=== PATIENT | female | born 1990 | race American Indian/Alaskan Native ===

== ENCOUNTER 2017-02-10 05:32 | Emergency (ER) | payer BC ==
[2017-02-10] MEDS ORDERED: PROVENTIL IH ONE (05:38)
[2017-02-10 06:13] LABS: Basophils % (Auto) 0.5 % (0.0-1.8); Hematocrit 39.1 % (30.3-42.9); Hemoglobin 12.8 gm/dl (10.1-14.3); Mean Corpuscular HGB Conc 33 % (30-34); Mean Corpuscular Hemoglobin 27 pg (28-32); Mean Corpuscular Volume 83 fl (79-97); Platelet Count 292 K/mm3 (140-440); Red Blood Count 4.73 M/mm3 (3.65-5.03); Red Cell Distribution Width 14.7 % (13.2-15.2); White Blood Count 7.5 K/mm3 (4.5-11.0)
[2017-02-10 06:30] LABS: Anion Gap 18 mmol/L; BUN/Creatinine Ratio 8.88; Blood Urea Nitrogen 8 mg/dL (7-17); Calcium 9.6 mg/dL (8.4-10.2); Carbon Dioxide 26 mmol/L (22-30); Chloride 99.9 mmol/L (98-107); Glucose 96 mg/dL (65-100); Potassium 3.9 mmol/L (3.6-5.0); Sodium 140 mmol/L (137-145)
[2017-02-10] MEDS ORDERED: DUONEB 0.5 MG-3 MG/3 ML SOLN IH ONE (07:27)
[2017-02-10] MEDS ORDERED: DELTASONE PO ONE (07:27)
--- NOTE | 2017-02-10 07:29 | Emergency Department Report ---
ED Asthma HPI - General Chief Complaint: Adult Asthma Stated Complaint: WHEEZING/CHEST PAIN Time Seen by Provider: 02/10/17 07:18 Source: patient Mode of arrival: Ambulatory Limitations: No Limitations - History of Present Illness Initial Comments: 26-year-old female past medical history asthma presents with complaint of shortness of breath since 8 PM last night. Patient states that she was at home playing with her children when she became short of breath. States she used her albuterol inhaler but she ran out of pumps last night. On exam patient is speaking in full sentences awake alert and oriented 3 does not appear to be in acute distress. No audible wheezing or stridor. Patient states that she feels chest tightness which is consistent with her asthma, denies any fever or chills no productive cough no nausea no vomiting no abdominal pain reported. Patient denies any history of PE or DVT not in any form of control no recent travel no recent trauma no leg swelling reported no recent surgeries. Patient states she has not been hospitalized for asthma in some time but has had recent ED visits for asthma. No history of intubations. Patient has already received 1 nebulizer treatment in triage. MD Complaint: "asthma attack" Onset/Timin -: hour(s) Asthma History: childhood onset Severity: moderate Associated Symptoms: none Treatments Prior to Arrival: inhaled bronchodilator - Related Data Current Asthma Therapy: inhaled bronchodilator Previous Rx's Medication Instructions Recorded Last Taken Type Albuterol Sulfate [Ventolin HFA] 2 puff IH Q4H PRN #1 hfa.aer.ad 12/07/15 Rx ALBUTEROL Inhaler [ProAir HFA 2 puff IH QID PRN #1 inhalation 09/22/16 Unknown Rx Inhaler] Albuterol Sulfate [Albuterol 0.63% 0.63 mg IH TID PRN #100 neb 09/22/16 Unknown Rx NEBS] Prednisone [predniSONE 5 mg (6-Day 5 mg PO .TAPER #1 tab.ds.pk 09/22/16 Unknown Rx Pack, 21 Tabs)] ALBUTEROL Inhaler [ProAir HFA 1 puff IH Q4H PRN #1 inha 02/10/17 Unknown Rx Inhaler] Albuterol Sulfate [Albuterol 0.63% 0.63 mg IH TID PRN #1 box 02/10/17 Unknown Rx NEBS] predniSONE [Deltasone] 40 mg PO QDAY #10 tablet 02/10/17 Unknown Rx Allergies Allergy/AdvReac Type Severity Reaction Status Date / Time shellfish derived Allergy Shortness Verified 08/23/15 00:06 of Breath ED Review of Systems ROS: Stated complaint: WHEEZING/CHEST PAIN Other details as noted in HPI Constitutional: denies: chills, fever Eyes: denies: eye pain, eye discharge, vision change ENT: denies: ear pain, throat pain Respiratory: denies: cough, shortness of breath, wheezing Cardiovascular: as per HPI. denies: chest pain, palpitations Endocrine: no symptoms reported Gastrointestinal: denies: abdominal pain, nausea, diarrhea Genitourinary: denies: urgency, dysuria, discharge Musculoskeletal: denies: back pain, joint swelling, arthralgia Skin: denies: rash, lesions Neurological: denies: headache, weakness, paresthesias Psychiatric: denies: anxiety, depression Hematological/Lymphatic: denies: easy bleeding, easy bruising ED Past Medical Hx - Past Medical History Previous Medical History?: Yes Hx Asthma: Yes Additional medical history: Vaginal delivery x 2 - Surgical History Past Surgical History?: No - Social History Smoking Status: Never Smoker Substance Use Type: None - Medications Home Medications: Home Medications Medication Instructions Recorded Confirmed Last Taken Type Albuterol Sulfate [Ventolin HFA] 2 puff IH Q4H PRN #1 hfa.aer.ad 12/07/1509/22 Rx ALBUTEROL Inhaler [ProAir HFA 2 puff IH QID PRN #1 inhalation 09/22/16 Unknown Rx Inhaler] Albuterol Sulfate [Albuterol 0.63% 0.63 mg IH TID PRN #100 neb 09/22/16 Unknown Rx NEBS] Prednisone [predniSONE 5 mg (6-Day 5 mg PO .TAPER #1 tab.ds.pk 09/22/16 Unknown Rx Pack, 21 Tabs)] ALBUTEROL Inhaler [ProAir HFA 1 puff IH Q4H PRN #1 inha 02/10/17 Unknown Rx Inhaler] Albuterol Sulfate [Albuterol 0.63% 0.63 mg IH TID PRN #1 box 02/10/17 Unknown Rx NEBS] predniSONE [Deltasone] 40 mg PO QDAY #10 tablet 02/10/17 Unknown Rx ED Physical Exam - General Limitations: No Limitations General appearance: alert, in no apparent distress - Head Head exam: Present: atraumatic, normocephalic - Eye Eye exam: Present: normal appearance, PERRL, EOMI - ENT ENT exam: Present: mucous membranes moist - Neck Neck exam: Present: normal inspection, full ROM - Respiratory Respiratory exam: Present: wheezes (very fine wheezing right lower lung base left lower lung base overall moderate airflow). Absent: respiratory distress - Cardiovascular Cardiovascular Exam: Present: regular rate, normal rhythm. Absent: systolic murmur, diastolic murmur, rubs, gallop - GI/Abdominal GI/Abdominal exam: Present: soft, normal bowel sounds - Extremities Exam Extremities exam: Present: normal inspection, full ROM - Back Exam Back exam: Present: normal inspection, full ROM - Neurological Exam Neurological exam: Present: alert, oriented X3, CN II-XII intact, normal gait - Psychiatric Psychiatric exam: Present: normal affect, normal mood - Skin Skin exam: Present: warm, dry, intact, normal color. Absent: rash ED Course Vital Signs 02/10/17 02/10/17 02/10/17 05:41 05:45 05:56 Temperature 98.8 F Pulse Rate 105 H Pulse Rate [ 105 H 107 H Posterior Left] Pulse Rate [ 105 H 107 H Posterior Right ] Respiratory 22 Rate Respiratory 18 18 Rate [Posterior Left] Respiratory 18 18 Rate [Posterior Right] Blood Pressure 147/99 [Right] O2 Sat by Pulse 95 Oximetry 02/10/17 02/10/17 07:49 07:50 Temperature Pulse Rate Pulse Rate [ 88 89 Posterior Left] Pulse Rate [ Posterior Right ] Respiratory Rate Respiratory 17 17 Rate [Posterior Left] Respiratory Rate [Posterior Right] Blood Pressure [Right] O2 Sat by Pulse Oximetry ED Medical Decision Making - Lab Data Result diagrams: 02/10/17 05:57 02/10/17 05:57 - Medical Decision Making A/P: Reactive airway disease, asthma exacerbation 1-refill albuterol inhaler, 5 day course prednisone, albuterol neb refill 2-patient states she feels considerably better speaking in full sentences vital signs stable for discharge. Normal EKG negative troponin 3-discussed case with Dr. Manrique before discharge 4-Wells' Criteria for Pulmonary Embolism 1.5 points Low risk group: 1.3% chance of PE in an ED population. Another study assigned scores 4 as PE Unlikely and had a 3% incidence of PE. HEART Score 0 points Low Score (0-3 points) Risk of MACE of 0.9-1.7%. Critical care attestation.: If time is entered above; I have spent that time in minutes in the direct care of this critically ill patient, excluding procedure time. ED Disposition Clinical Impression: Asthma Qualifiers: Asthma severity: mild intermittent Asthma complication type: with acute exacerbation Qualified Code(s): J45.21 - Mild intermittent asthma with (acute) exacerbation Reactive airway disease Qualifiers: Asthma severity: mild intermittent Asthma complication type: with acute exacerbation Qualified Code(s): J45.21 - Mild intermittent asthma with (acute) exacerbation Disposition: DISCHARGED TO HOME OR SELFCARE Is pt being admited?: No Does the pt Need Aspirin: No Condition: Stable Instructions: Asthma (ED), Reactive Airways Disease (ED) Prescriptions: ALBUTEROL Inhaler [ProAir HFA Inhaler] 1 puff IH Q4H PRN #1 inha PRN Reason: Wheezing Albuterol Sulfate [Albuterol 0.63% NEBS] 0.63 mg IH TID PRN #1 box PRN Reason: Wheezing predniSONE [Deltasone] 40 mg PO QDAY #10 tablet Referrals: [facility] [Outside] - 3-5 Days [facility] [Provider Group] - 3-5 Days Forms: Work/School Release Form(ED) Time of Disposition: 08:34
--- NOTE | 2017-02-10 08:10 | XRay Report ---
ROUTINE CHEST, TWO VIEWS: History: Shortness of breath. PA and lateral views demonstrate the heart and mediastinal contour to be of normal size and shape. The lungs are clear and fully expanded and the soft tissues and bony structures are normal. IMPRESSION: Normal study.
[2017-02-10 08:27] VITALS: BP 137/89
== END 2017-02-10 08:45 | disposition home or self-care (01) ==
LOC: ED 05:32
DX: J45.21 Mild intermittent asthma with (acute) exacerbation (principal)
CPT/HCPCS: 36415; 71020; 80048; 84484; 84703; 85025; 93005; 93010; 94640; 99284; J7512

== ENCOUNTER 2017-10-06 13:22 | Emergency (ER) | payer BC ==
[2017-10-06] MEDS ORDERED: PROVENTIL IH ONE ×2 (13:40→18:20)
[2017-10-06 14:04] LABS: Basophils % (Auto) 0.6 % (0.0-1.8); Eosinophils % (Auto) 5.3 % (0.0-4.3); Hematocrit 37.8 % (30.3-42.9); Hemoglobin 12.2 gm/dl (10.1-14.3); Mean Corpuscular HGB Conc 32 % (30-34); Mean Corpuscular Hemoglobin 28 pg (28-32); Mean Corpuscular Volume 86 fl (79-97); Platelet Count 296 K/mm3 (140-440); Red Blood Count 4.42 M/mm3 (3.65-5.03); Red Cell Distribution Width 14.4 % (13.2-15.2); White Blood Count 7.5 K/mm3 (4.5-11.0)
--- NOTE | 2017-10-06 14:14 | Emergency Department Report ---
ED Asthma HPI - General Chief Complaint: Adult Asthma Stated Complaint: CHEST PAIN, ASTHMA Time Seen by Provider: 10/06/17 13:39 Source: patient Mode of arrival: Ambulatory Limitations: No Limitations - History of Present Illness Initial Comments: This is a 27-year-old female nontoxic, well nourished in appearance, no acute signs of distress presents to the ED with c/o of asthma exacerbation, productive cough, and chest pain during coughing episode. Patient stated she is out of her albuterol treatment and stated symptoms started this morning around 9 AM. Patient describes productive cough as yellow/green mucus production. Patient denies any fever, chills, headache, nausea, vomiting, shortness of breathe, hemoptysis, calf pain, calf tenderness, stiff neck, back pain, numbness or tingling. Patient stated has chest pain only during coughing episode. Patient denies recent travels, long car rides, or recent hospital stays. Patient states allergies to shellfish. PMH includes asthma. MD Complaint: "asthma attack", wheezing -: days(s) (1) Asthma History: childhood onset Severity: mild Context: recent URI, ran out of meds Associated Symptoms: productive cough, chest pain - Related Data Current Asthma Therapy: none Previous Rx's Medication Instructions Recorded Last Taken Type Albuterol Sulfate [Ventolin HFA] 2 puff IH Q4H PRN #1 hfa.aer.ad 12/07/15 Rx ALBUTEROL Inhaler [ProAir HFA 2 puff IH QID PRN #1 inhalation 09/22/16 Unknown Rx Inhaler] Albuterol Sulfate [Albuterol 0.63% 0.63 mg IH TID PRN #100 neb 09/22/16 Unknown Rx NEBS] Prednisone [predniSONE 5 mg (6-Day 5 mg PO .TAPER #1 tab.ds.pk 09/22/16 Unknown Rx Pack, 21 Tabs)] ALBUTEROL Inhaler [ProAir HFA 1 puff IH Q4H PRN #1 inha 02/10/17 Unknown Rx Inhaler] Albuterol Sulfate [Albuterol 0.63% 0.63 mg IH TID PRN #1 box 02/10/17 Unknown Rx NEBS] predniSONE [Deltasone] 40 mg PO QDAY #10 tablet 02/10/17 Unknown Rx ALBUTEROL Inhaler [ProAir HFA 2 puff IH QID PRN #1 inhalation 10/06/17 Unknown Rx Inhaler] Azithromycin [Zithromax Z-CHRISS] 250 mg PO DAILY #6 tablet 10/06/17 Unknown Rx Benzonatate [Tessalon Perle] 100 mg PO Q8H #15 capsule 10/06/17 Unknown Rx predniSONE [Deltasone] 20 mg PO BID #10 tab 10/06/17 Unknown Rx Allergies Allergy/AdvReac Type Severity Reaction Status Date / Time shellfish derived Allergy Shortness Verified 08/23/15 00:06 of Breath ED Review of Systems ROS: Stated complaint: CHEST PAIN, ASTHMA Other details as noted in HPI Constitutional: denies: chills, fever Eyes: denies: eye pain, eye discharge, vision change ENT: denies: ear pain, throat pain Respiratory: cough. denies: shortness of breath, wheezing Cardiovascular: denies: chest pain, palpitations Endocrine: no symptoms reported Gastrointestinal: denies: abdominal pain, nausea, diarrhea Genitourinary: denies: urgency, dysuria, discharge Musculoskeletal: denies: back pain, joint swelling, arthralgia Skin: denies: rash, lesions Neurological: denies: headache, weakness, paresthesias Psychiatric: denies: anxiety, depression Hematological/Lymphatic: denies: easy bleeding, easy bruising ED Past Medical Hx - Past Medical History Previous Medical History?: Yes Hx Asthma: Yes Additional medical history: Vaginal delivery x 2 - Surgical History Past Surgical History?: No - Social History Smoking Status: Never Smoker Substance Use Type: None - Medications Home Medications: Home Medications Medication Instructions Recorded Confirmed Last Taken Type Albuterol Sulfate [Ventolin HFA] 2 puff IH Q4H PRN #1 hfa.aer.ad 12/07/1509/22 Rx ALBUTEROL Inhaler [ProAir HFA 2 puff IH QID PRN #1 inhalation 09/22/16 Unknown Rx Inhaler] Albuterol Sulfate [Albuterol 0.63% 0.63 mg IH TID PRN #100 neb 09/22/16 Unknown Rx NEBS] Prednisone [predniSONE 5 mg (6-Day 5 mg PO .TAPER #1 tab.ds.pk 09/22/16 Unknown Rx Pack, 21 Tabs)] ALBUTEROL Inhaler [ProAir HFA 1 puff IH Q4H PRN #1 inha 02/10/17 Unknown Rx Inhaler] Albuterol Sulfate [Albuterol 0.63% 0.63 mg IH TID PRN #1 box 02/10/17 Unknown Rx NEBS] predniSONE [Deltasone] 40 mg PO QDAY #10 tablet 02/10/17 Unknown Rx ALBUTEROL Inhaler [ProAir HFA 2 puff IH QID PRN #1 inhalation 10/06/17 Unknown Rx Inhaler] Azithromycin [Zithromax Z-CHRISS] 250 mg PO DAILY #6 tablet 10/06/17 Unknown Rx Benzonatate [Tessalon Perle] 100 mg PO Q8H #15 capsule 10/06/17 Unknown Rx predniSONE [Deltasone] 20 mg PO BID #10 tab 10/06/17 Unknown Rx ED Physical Exam - General Limitations: No Limitations General appearance: alert, in no apparent distress - Head Head exam: Present: atraumatic, normocephalic, normal inspection - Eye Eye exam: Present: normal appearance, PERRL, EOMI. Absent: scleral icterus, conjunctival injection, nystagmus, periorbital swelling, periorbital tenderness Pupils: Present: normal accommodation - ENT ENT exam: Present: normal exam, normal orophraynx, mucous membranes moist, TM's normal bilaterally, normal external ear exam - Neck Neck exam: Present: normal inspection, full ROM. Absent: tenderness, meningismus, lymphadenopathy, thyromegaly - Respiratory Respiratory exam: Present: normal lung sounds bilaterally, wheezes. Absent: respiratory distress, rales, rhonchi, stridor, chest wall tenderness, accessory muscle use, decreased breath sounds, prolonged expiratory - Cardiovascular Cardiovascular Exam: Present: regular rate, normal rhythm, normal heart sounds. Absent: irregular rhythm, systolic murmur, diastolic murmur, rubs, gallop - GI/Abdominal GI/Abdominal exam: Present: soft, normal bowel sounds. Absent: distended, tenderness, guarding, rebound, rigid, diminished bowel sounds - Rectal Rectal exam: Present: deferred - Extremities Exam Extremities exam: Present: normal inspection, full ROM, normal capillary refill. Absent: tenderness, pedal edema, joint swelling, calf tenderness - Back Exam Back exam: Present: normal inspection, full ROM. Absent: tenderness, CVA tenderness (R), CVA tenderness (L), muscle spasm, paraspinal tenderness, vertebral tenderness, rash noted - Neurological Exam Neurological exam: Present: alert, oriented X3, CN II-XII intact, normal gait, reflexes normal - Psychiatric Psychiatric exam: Present: normal affect, normal mood - Skin Skin exam: Present: warm, dry, intact, normal color. Absent: rash - Other Other exam information: negative holmans test. Negative calf pain or tenderness. ED Course Vital Signs 10/06/17 10/06/17 10/06/17 13:27 18:54 20:50 Temperature 98.8 F 98.4 F 98.7 F Pulse Rate 92 H 74 88 Respiratory 20 20 18 Rate Blood Pressure 154/94 Blood Pressure 141/95 145/89 [Left] O2 Sat by Pulse 97 97 100 Oximetry - Reevaluation(s) Reevaluation #1: 10/06/17 14:17 Patient is speaking in full sentences with no signs of distress noted. Reevaluation #2: 10/06/17 18:21 Patient stated her wheezing has returned. DuoNeb and ABG ordered. Will re- evaluate patient after treatment. Pending VQ scan. Reevaluation #3: 10/06/17 20:52 Post treatment eval: No wheezing. Patient walked through the whole ER with me with pulse ox attached with rates of 99-100%. Patient is no signs of distress or resp distress. - Consultations Consultation #1: 10/06/17 15:56 Dr. Villar has been consulted about patient history, physical exam, and labs findings and agrees to the plan of care in the ED with VQ scan and if normal d/ c with follow-up in 24 hours. Consultation #2: 10/06/17 20:54 Patient was also discussed with Dr. Reynoso about patient history, physical exam, abgs findings and agrees to the plan of care of d/c with follow-up. ED Medical Decision Making - Lab Data Result diagrams: 10/06/17 13:53 10/06/17 13:53 - Medical Decision Making This is a 27-year-old female that presents with asthma exacerbation and URI. Patient is stable and was examined by me. Chest xray has been obtained and dictated by radiologist with normal exam. EKG normal sinus rhythm with no ST abnormalities. CBC, BMP, Trop x2, Cardiac CK, UA, Preg obtained. D-dimmer elevated. VQ scan obtained and dictated by radiologist with normal limits. Case discussed with Dr. Villar and agrees to plan of care in the ED and d/c follow- up. Patient was notified of xray results, ekg and labs with no questions noted. Patient received DuoNeb and Solu-Medrol and Mag 2G which patient that his symptoms are improving and are subsiding. Post treatment in the ED there is no wheezing upon auscultation. Patient is discharged with Z-Chriss, Tessalon Perles, prednisone, and albuterol. Patient was instructed Follow-up with a primary care doctor in 3-5 days or if symptoms worsen and continue return to emergency room as soon as possible. At time time of discharge, the patient does not seem toxic or ill in appearance. No acute signs of distress noted. Patient agrees to discharge treatment plan of care. No further questions noted by the patient. Critical care attestation.: If time is entered above; I have spent that time in minutes in the direct care of this critically ill patient, excluding procedure time. ED Disposition Clinical Impression: Upper respiratory infection Qualifiers: URI type: unspecified URI Qualified Code(s): J06.9 - Acute upper respiratory infection, unspecified Asthma exacerbation Qualifiers: Asthma severity: mild Asthma persistence: unspecified Qualified Code(s): J45.901 - Unspecified asthma with (acute) exacerbation Disposition: DC-01 TO HOME OR SELFCARE Is pt being admited?: No Does the pt Need Aspirin: No Condition: Stable Instructions: Benzonatate (By mouth), Albuterol (By mouth), Prednisone (By mouth), Azithromycin (By mouth), Upper Respiratory Infection (ED) Additional Instructions: Follow-up with a primary care doctor in 3-5 days or if symptoms worsen and continue return to emergency room as soon as possible. Prescriptions: ALBUTEROL Inhaler [ProAir HFA Inhaler] 2 puff IH QID PRN #1 inhalation PRN Reason: Shortness Of Breath Azithromycin [Zithromax Z-CHRISS] 250 mg PO DAILY #6 tablet Benzonatate [Tessalon Perle] 100 mg PO Q8H #15 capsule predniSONE [Deltasone] 20 mg PO BID #10 tab Referrals: PRIMARY CARE, [Primary Care Provider] - 3-5 Days MELISSA FORMAN MD [Staff Physician] - 3-5 Days [facility] [Outside] - 3-5 Days [facility] [Outside] - 3-5 Days Forms: Work/School Release Form(ED)
[2017-10-06 14:28] LABS: Creatine Kinase MB 4.2 ng/mL (0.0-4.0)
[2017-10-06 14:29] LABS: Anion Gap 18 mmol/L; BUN/Creatinine Ratio 9; Blood Urea Nitrogen 7 mg/dL (7-17); Calcium 9.1 mg/dL (8.4-10.2); Carbon Dioxide 24 mmol/L (22-30); Chloride 101.9 mmol/L (98-107); Creatine Kinase 684 units/L (30-135); Glucose 80 mg/dL (65-100); Potassium 4.1 mmol/L (3.6-5.0); Sodium 140 mmol/L (137-145)
--- NOTE | 2017-10-06 15:12 | XRay Report ---
ROUTINE CHEST, TWO VIEWS: HISTORY: chest pain. The trachea, heart, mediastinal contour, lung [place] and bony thorax are unremarkable. IMPRESSION: Unremarkable chest x-ray.
[2017-10-06 15:20] LABS: Bilirubin,Urine NEG (Negative); Blood,Urine NEG (Negative); Ketones,Urine NEG (Negative); Leukocyte Esterase,Urine NEG (Negative); Mucus,Urine FEW /HPF; Nitrite,Urine NEG (Negative); Protein,Urine <15 mg/dL mg/dL (Negative); Urobilinogen,Urine < 2.0 mg/dL (<2.0); WBC,Urine < 1.0 /HPF (0.0-6.0)
[2017-10-06 18:47] LABS: ISTAT Base Excess -4; ISTAT DEVICE 0; ISTAT HCO3 20.4; ISTAT PCO2 32.5 (35-45); ISTAT PH 7.405 (7.35-7.45); ISTAT PO2 70 (80-105); ISTAT SO2 94; ISTAT TCO2 21
[2017-10-06] MEDS ORDERED: MAGNESIUM SULFATE 2GM/50ML 2 GM/50 ML BAG IV ONE (19:00)
--- NOTE | 2017-10-06 20:12 | Nuclear Medicine Report ---
FINAL REPORT PROCEDURE: NM LUNG SCAN PERF/VENT TECHNIQUE: 5.0 mCi Tc-99m MAA was injected IV for pulmonary perfusion imaging in multiple projections. 15.0 MCi XE-[id number] was inhaled for pulmonary ventilation imaging in multiple projections. Injection site: RIGHT antecubital fossa. CPT 50894 REGULATORY GUIDELINES: The patient was released based upon guidelines established in [place] State Regulations for Protection Against Radiation, Chapter 1199-12-14-35, Release of Individuals Containing Radioactive Drugs or Implants. HISTORY: d-dimmer elevated and shortness of breathe COMPARISON: No prior studies are available for comparison. FINDINGS: Perfusion: No defects . Ventilation: No defects . IMPRESSION: Normal Examination
[2017-10-06 20:51] VITALS: BP 145/89
== END 2017-10-06 21:03 | disposition home or self-care (01) ==
LOC: ED 13:22
DX: J45.901 Unspecified asthma with (acute) exacerbation (principal); J06.9 Acute upper respiratory infection, unspecified
CPT/HCPCS: 36415; 71020; 78582; 80048; 81001; 82550; 82553; 82803; 84484; 84703; 85025; 85379; 93005; 93010; 94640; 96365; 96372; 99284; A9540; A9558; J2930; J3475

== ENCOUNTER 2017-12-14 03:25 | Emergency (ER) | payer SELFPAY ==
[2017-12-14 03:45] VITALS: BP 128/76
[2017-12-14] MEDS ORDERED: XOPENEX IH ONE ×2 (03:45→04:29)
== END 2017-12-14 09:44 | disposition left against medical advice (07) ==
LOC: ED 03:25
DX: R07.89 Other chest pain (principal); R06.2 Wheezing; Z53.21 Procedure and treatment not carried out due to patient leaving prior to being seen by health care provider
CPT/HCPCS: 94640

== ENCOUNTER 2018-03-30 17:02 | Emergency (ER) | payer BC ==
[2018-03-30] MEDS ORDERED: PROVENTIL IH ONE ×2 (17:11→18:28)
[2018-03-30] MEDS ORDERED: ATROVENT IH ONE (18:29)
[2018-03-30] MEDS ORDERED: NACL 0.9% 1000 ML 1,000 ML IV ONE (18:31)
[2018-03-30] MEDS ORDERED: MAGNESIUM SULFATE 1 GM in NACL 0.9% 50 ML IV ONE (18:34)
[2018-03-30] MEDS ORDERED: MAGNESIUM SULFATE 2GM/50ML 2 GM/50 ML BAG IV ONE ×2 (18:49→19:01)
--- NOTE | 2018-03-30 19:38 | Emergency Department Report ---
ED Asthma HPI - General Chief Complaint: Dyspnea/Respdistress Stated Complaint: ASTHMA Time Seen by Provider: 03/30/18 18:25 Source: patient, RN notes reviewed Mode of arrival: Ambulatory Limitations: No Limitations - History of Present Illness Initial Comments: This is a 27-year-old female who is previously known to this provider, she is 3, para 2, at 23 weeks gestation, follows at [facility] for medical care, also with a past medical history of asthma, no lifetime intubations or hospitalizations, recently ran out of her albuterol, who presents to the ER with a complaint of wheezing, cough, shortness of breath, "this feels just like my asthma." Her symptoms are constant, they have various inciting factors, her symptoms were improved with albuterol, Atrovent, steroids and magnesium. She denies chest pain, leg pain, recent travel. She has no abdominal pain or urinary symptoms. MD Complaint: "asthma attack", shortness of breath, wheezing -: Gradual Asthma History: history of frequent attac, history of prior ED visit Severity: moderate Context: ran out of meds Associated Symptoms: dry cough - Related Data Current Asthma Therapy: inhaled bronchodilator, recent oral steroid Previous Rx's Medication Instructions Recorded Last Taken Type Albuterol Sulfate [Ventolin HFA] 2 puff IH Q4H PRN #1 hfa.aer.ad 12/07/15 Rx ALBUTEROL Inhaler [ProAir HFA 2 puff IH QID PRN #1 inhalation 09/22/16 Unknown Rx Inhaler] Albuterol Sulfate [Albuterol 0.63% 0.63 mg IH TID PRN #100 neb 09/22/16 Unknown Rx NEBS] Prednisone [predniSONE 5 mg (6-Day 5 mg PO .TAPER #1 tab.ds.pk 09/22/16 Unknown Rx Pack, 21 Tabs)] ALBUTEROL Inhaler [ProAir HFA 1 puff IH Q4H PRN #1 inha 02/10/17 Unknown Rx Inhaler] Albuterol Sulfate [Albuterol 0.63% 0.63 mg IH TID PRN #1 box 02/10/17 Unknown Rx NEBS] predniSONE [Deltasone] 40 mg PO QDAY #10 tablet 02/10/17 Unknown Rx ALBUTEROL Inhaler [ProAir HFA 2 puff IH QID PRN #1 inhalation 10/06/17 Unknown Rx Inhaler] Azithromycin [Zithromax Z-CHRISS] 250 mg PO DAILY #6 tablet 10/06/17 Unknown Rx Benzonatate [Tessalon Perle] 100 mg PO Q8H #15 capsule 10/06/17 Unknown Rx predniSONE [Deltasone] 20 mg PO BID #10 tab 10/06/17 Unknown Rx Albuterol Sulfate [Albuterol 0.63% 0.63 mg IH Q4HR PRN #2 ml 03/30/18 Unknown Rx NEBS] Albuterol Sulfate [Proair 90 mcg IH Q4HR PRN #2 aer.pow.ba 03/30/18 Unknown Rx Respiclick] predniSONE [Deltasone] 40 mg PO QDAY #8 tab 03/30/18 Unknown Rx Allergies Allergy/AdvReac Type Severity Reaction Status Date / Time shellfish derived Allergy Shortness Verified 08/23/15 00:06 of Breath ED Review of Systems ROS: Stated complaint: ASTHMA Other details as noted in HPI Comment: All other systems reviewed and negative Respiratory: shortness of breath, wheezing Cardiovascular: denies: chest pain Gastrointestinal: denies: abdominal pain Genitourinary: denies: urgency, dysuria ED Past Medical Hx - Past Medical History Hx Asthma: Yes Additional medical history: Vaginal delivery x 2 - Surgical History Past Surgical History?: No - Social History Smoking Status: Never Smoker Substance Use Type: None - Medications Home Medications: Home Medications Medication Instructions Recorded Confirmed Last Taken Type Albuterol Sulfate [Ventolin HFA] 2 puff IH Q4H PRN #1 hfa.aer.ad 12/07/1509/22 Rx ALBUTEROL Inhaler [ProAir HFA 2 puff IH QID PRN #1 inhalation 09/22/16 Unknown Rx Inhaler] Albuterol Sulfate [Albuterol 0.63% 0.63 mg IH TID PRN #100 neb 09/22/16 Unknown Rx NEBS] Prednisone [predniSONE 5 mg (6-Day 5 mg PO .TAPER #1 tab.ds.pk 09/22/16 Unknown Rx Pack, 21 Tabs)] ALBUTEROL Inhaler [ProAir HFA 1 puff IH Q4H PRN #1 inha 02/10/17 Unknown Rx Inhaler] Albuterol Sulfate [Albuterol 0.63% 0.63 mg IH TID PRN #1 box 02/10/17 Unknown Rx NEBS] predniSONE [Deltasone] 40 mg PO QDAY #10 tablet 02/10/17 Unknown Rx ALBUTEROL Inhaler [ProAir HFA 2 puff IH QID PRN #1 inhalation 10/06/17 Unknown Rx Inhaler] Azithromycin [Zithromax Z-CHRISS] 250 mg PO DAILY #6 tablet 10/06/17 Unknown Rx Benzonatate [Tessalon Perle] 100 mg PO Q8H #15 capsule 10/06/17 Unknown Rx predniSONE [Deltasone] 20 mg PO BID #10 tab 10/06/17 Unknown Rx Albuterol Sulfate [Albuterol 0.63% 0.63 mg IH Q4HR PRN #2 ml 03/30/18 Unknown Rx NEBS] Albuterol Sulfate [Proair 90 mcg IH Q4HR PRN #2 aer.pow.ba 03/30/18 Unknown Rx Respiclick] predniSONE [Deltasone] 40 mg PO QDAY #8 tab 03/30/18 Unknown Rx ED Physical Exam - General Limitations: No Limitations General appearance: alert, in no apparent distress - Head Head exam: Present: atraumatic, normocephalic - Eye Eye exam: Present: normal appearance, EOMI. Absent: nystagmus - ENT ENT exam: Present: normal exam, normal orophraynx, mucous membranes moist, normal external ear exam - Neck Neck exam: Present: normal inspection, full ROM - Respiratory Respiratory exam: Present: rhonchi. Absent: respiratory distress - Cardiovascular Cardiovascular Exam: Present: normal rhythm, tachycardia, normal heart sounds. Absent: systolic murmur, diastolic murmur, rubs, gallop - GI/Abdominal GI/Abdominal exam: Present: soft, other (uterus is consistent for dates. There is no tenderness.). Absent: distended, tenderness, guarding, rebound, rigid, pulsatile mass - Extremities Exam Extremities exam: Present: normal inspection, full ROM, normal capillary refill , other (there is no palpable cord. There is negative Homans sign.). Absent: tenderness, pedal edema, joint swelling, calf tenderness - Back Exam Back exam: Present: normal inspection - Neurological Exam Neurological exam: Present: alert, oriented X3, CN II-XII intact, normal gait, other (Extraocular movements intact. Tongue midline. No facial droop. Facial sensation intact to light touch in the V1, V2, V3 distribution bilaterally. 5 and 5 strength in 4 extremities.. Sensation is intact to light touch in 4 extremities.). Absent: motor sensory deficit - Psychiatric Psychiatric exam: Present: normal affect, normal mood - Skin Skin exam: Present: warm, dry, intact, normal color. Absent: rash ED Course Vital Signs 03/30/18 03/30/18 03/30/18 17:08 17:17 17:32 Temperature 98.7 F Pulse Rate 117 H Pulse Rate [ 91 H 114 H Posterior Bilateral Throughout] Respiratory 22 Rate Respiratory 22 20 Rate [Posterior Bilateral Throughout] Blood Pressure 127/87 Blood Pressure [Left] O2 Sat by Pulse 94 Oximetry 03/30/18 03/30/18 03/30/18 18:02 18:05 18:15 Temperature 98.4 F Pulse Rate 96 H Pulse Rate [ Posterior Bilateral Throughout] Respiratory 18 Rate Respiratory Rate [Posterior Bilateral Throughout] Blood Pressure 138/75 Blood Pressure 124/76 [Left] O2 Sat by Pulse 96 100 94 Oximetry 03/30/18 18:50 Temperature Pulse Rate Pulse Rate [ 104 H Posterior Bilateral Throughout] Respiratory Rate Respiratory 20 Rate [Posterior Bilateral Throughout] Blood Pressure Blood Pressure [Left] O2 Sat by Pulse Oximetry - Reevaluation(s) Reevaluation #1: 03/30/18 21:10 Differential diagnosis, including but not limited to: Asthma exacerbation, incidental Assessment and plan: 27-year-old female who presents with her typical asthma exacerbation. I appreciated the patient is but she has no chest pain, there is no palpable cord, and she reports that this feels like her prior episodes of asthma exacerbation. A bedside ultrasound demonstrates an intrauterine with spontaneous movement and appropriate heart rate. She initially had wheezing and rhonchi, and was treated with albuterol, Atrovent, steroids, magnesium, and IV fluids. Minimally tachycardic at the time of discharge, this is likely physiologic from , as well as from her albuterol. Patient is speaking in full sentences, and reports that she feels ready to go, and will be discharged at this time, return precautions are reviewed. ED Medical Decision Making - Medical Decision Making Vital Signs 05/24/18 05/24/18 05/24/18 17:08 17:17 17:32 Temperature 98.7 F Pulse Rate 117 H Pulse Rate [ 91 H 114 H Posterior Bilateral Throughout] Respiratory 22 Rate Respiratory 22 20 Rate [Posterior Bilateral Throughout] Blood Pressure 127/87 Blood Pressure [Left] O2 Sat by Pulse 94 Oximetry 03/30/18 03/30/18 03/30/18 18:02 18:05 18:15 Temperature 98.4 F Pulse Rate 96 H Pulse Rate [ Posterior Bilateral Throughout] Respiratory 18 Rate Respiratory Rate [Posterior Bilateral Throughout] Blood Pressure 138/75 Blood Pressure 124/76 [Left] O2 Sat by Pulse 96 100 94 Oximetry 03/30/18 18:50 Temperature Pulse Rate Pulse Rate [ 104 H Posterior Bilateral Throughout] Respiratory Rate Respiratory 20 Rate [Posterior Bilateral Throughout] Blood Pressure Blood Pressure [Left] O2 Sat by Pulse Oximetry Critical care attestation.: If time is entered above; I have spent that time in minutes in the direct care of this critically ill patient, excluding procedure time. ED Disposition Clinical Impression: Asthma Disposition: [id number] TO HOME OR SELFCARE Is pt being admited?: No Does the pt Need Aspirin: No Condition: Stable Instructions: Asthma (ED) Additional Instructions: Continue current outpatient medications. Take the albuterol every 4-6 hours for the next 5 days. Continue your current outpatient care. Return to the ER right away with new pain, worsened pain, migration of pain, fevers, chills, lethargy, irritability, projectile vomiting, change in mental status, confusion, inability to tolerate liquid feedings. Follow-up with her private OB /[facility] MANAGER doctor within the next 7-10 days. Referrals: PRIMARY CARE, [Primary Care Provider] - 3-5 Days
[2018-03-30 21:55] VITALS: BP 106/70
== END 2018-03-30 21:45 | disposition home or self-care (01) ==
LOC: ED 17:02
DX: O99.512 Diseases of the respiratory system complicating pregnancy, second trimester (principal); J45.909 Unspecified asthma, uncomplicated; Z3A.23 23 weeks gestation of pregnancy; Z91.013 Allergy to seafood
CPT/HCPCS: 94640; 96365; 96375; 99283; J2930; J3475; J7030